=== PATIENT | female | born 1940 | race Caucasian/White ===

== ENCOUNTER → 2016-05-06 | Outpatient (CLI) | payer OTHER ==
[~2016-05-06] VITALS: Ht 170.2 cm; Wt 83.9 kg
[~2016-05-06] MED LIST: ALBUTEROL2.5 MG/0.5 INH; BENICAR20 MG PO; BENTYL 20 MG TA20 M1 PO; CENTRUM SILVER1 EAC4 PO; CITRUCEL479 GM PO; CRESTOR10 MG PO; DICLOFENAC SOD50 M1 PO; FISH OIL + D31 EACH PO; GLUCOSAMINE-CH1 EA33 PO; NEURONTIN 300300 M1 PO; OMEPRAZOLE20 M1 PO; PAROXETINE HCL20 MG PO; ROXICODONE5 MG PO; SPIRIVA INH; STOOL SOFTENER100 MG PO; TRIBENZOR 20-51 EACH PO; TROKENDI XR100 MG PO; VALACYCLOVIR500 MG PO; VITAMIN D1000 UNI1 PO
--- NOTE | ~2016-05-06 | HPC ---
[facility] [address] [place] [address] PAIN MANAGEMENT CONSULTATION Name: WALT CONTRERAS Room #: REG [facility]..#: [id number] Admission: 05/06/16 Attend Phys: Elmer Adams DO Discharge: Date of : 42 Report #: [id number] THIS REPORT FOR: //name// CC: Elmer Adamson DATE OF SERVICE: 05/06/2016 DATE OF SERVICE: 05/06/2016 CHIEF COMPLAINT: Low back pain, bilateral lower extremity pain, left greater than right. HISTORY OF PRESENT ILLNESS: As you know, the patient is a 76-year-old female, who returns today in followup visit requesting to undergo next in the series of epidural injections under fluoroscopic guidance. The patient is placing pain score around 8/10. States pain is mainly in low back, left lower extremity, but periodically in the right. She describes the pain as gradually recurring, sharp in sensation, exacerbated with standing, walking and any type of activity, improves with sitting and lying down as well as epidural injections. Most recent epidural injection provided 65% improvement in overall pain lasting for nearly 3 months. She returns today requesting to undergo the next in the series in hopes of improving pain. ALLERGIES: PENICILLIN, SULFA. CURRENT MEDICATIONS: Olmesartan, topiramate, docusate, cholecalciferol, multivitamin, Citrucel, omeprazole, , Tribenzor, valacyclovir, albuterol, glucosamine chondroitin, omega-3 fish oil, gabapentin, dicyclomine, paroxetine and Spiriva. SOCIAL HISTORY: The patient continues to smoke 1 pack of tobacco per day and has done so for 51 years. Denies IV or illicit drug use. Denies any chronic alcohol use. She is . She is unaccompanied today. PHYSICAL EXAMINATION: VITAL SIGNS: Blood pressure 132/74, pulse 80, respiratory rate 20, unlabored. The patient is 94% on room air. Height 5 feet 7 inches tall, weight 185 pounds, BMI calculated 29. GENERAL: Well developed, well nourished, well hydrated 76-year-old female appearing stated age, pain is rated around 8/10. HEENT: Normocephalic, atraumatic. Pupils equal, round, reactive to light. Extraocular muscles are intact. Sclerae nonicteric, without injection. EXTREMITIES: Show no clubbing, no cyanosis, no edema. MUSCULOSKELETAL: Seated straight leg raising negative. Supine straight leg [address] [address] PAIN MANAGEMENT CONSULTATION Name: WALT CONTRERAS KIMBERLY Room #: REG [facility].#: [id number] Admission: 05/06/16 Attend Phys: Elmer Adams DO Discharge: Date of : 42 Report #: [id number] raising positive on the left. Nestor's test negative. Modified Gaenslen's is positive for axial low back pain. Ankle clonus negative. Babinski is negative. Muscle bulk and tone equal and symmetrical in the lower extremities. ASSESSMENT: 1. Lumbar radiculopathy. 2. Spinal stenosis of the lumbar spine. 3. Displacement of lumbar intervertebral disk with radiculopathy. 4. Lumbosacral spondylosis with radiculopathy. 5. Lumbar degeneration. 6. Chronic intractable pain. PLAN: 1. The patient returns today in followup visit requesting to undergo next in the series of epidural injections under fluoroscopic guidance. The patient does report a 65% improvement in overall pain with the epidural injection provided at our last visit of 12/26/2015. She has had a slow and progressive return of symptoms over the past couple of weeks, now already pain at level of 8/10. She returns today requesting an epidural injection under fluoroscopic guidance. The patient was advised that third democrat payer restrictions require that authorization be obtained before she can undergo the next in a series of epidural injections. This authorization will take somewhere between 4-7 working days. We will begin authorization process immediately. Once we have achieved this authorization, we will contact the patient to have her return to undergo next in the series of epidural injections. 2. Patient and I did discuss the possibility of returning to see Dr. Staley. She may due to go at any time if she wishes to consider surgical options. Otherwise, we will continue management with epidural injections as they have been effective. 3. No medication changes were made at today's visit. The patient continue current medical therapy as previously prescribed. 4. The patient will return to our clinic once we have achieved precertification for an epidural injection. <ELECTRONICALLY SIGNED> By: Elmer Adams DO 05/06/16 1316 1152 1219 Elmer Adams DO /nt
[2016-05-06 10:24] VITALS: BP 132/74
== END | disposition home or self-care (01) ==
LOC: PAIN 05:46
DX: M51.16 Intervertebral disc disorders with radiculopathy, lumbar region (principal); M48.06 Spinal stenosis, lumbar region; M47.27 Other spondylosis with radiculopathy, lumbosacral region; G89.29 Other chronic pain; F17.210 Nicotine dependence, cigarettes, uncomplicated

== ENCOUNTER → 2016-05-14 | Outpatient (CLI) | payer OTHER ==
[~2016-05-14] VITALS: Ht 170.2 cm; Wt 83.5 kg
--- NOTE | ~2016-05-14 | HPC ---
[facility] [address] [place] [address] PAIN MANAGEMENT CONSULTATION Name: WALT CONTRERAS Room #: REG [facility].#: [id number] Admission: 05/14/16 Attend Phys: Elmer Adams DO Discharge: Date of : 42 Report #: [id number] THIS REPORT FOR: //name// CC: Elmer Adamson DATE OF SERVICE: 05/14/2016 CHIEF COMPLAINT: Low back pain, lower extremity pain with paresthesias, left greater than right. HISTORY OF PRESENT ILLNESS: As you know, the patient is a 76-year-old female who returns today in followup visit with preauthorization to undergo the next in a series of epidural injections under fluoroscopic guidance. The patient has done very well with previous epidural injections, returning today in followup visit in hopes of improving pain further. She does have surgical options available, but does not wish to undergo surgery if she can avoid. She wishes to undergo the epidural injection requested today in hopes of improving pain. She is placing pain score at 8/10; exacerbated with standing, walking, any activity; improves with sitting, lying down. ALLERGIES: PENICILLIN, SULFA. CURRENT MEDICATIONS: Olmesartan, topiramate, docusate sodium, cholecalciferol, multivitamin, Citrucel, omeprazole, lovastatin, Tribenzor, valacyclovir, albuterol, glucosamine chondroitin, gabapentin, dicyclomine, paroxetine, Spiriva. SOCIAL HISTORY: The patient continues to smoke 1 pack of tobacco per day, has done so for 50+ years. Denies IV or illicit drug use. Unaccompanied today. PHYSICAL EXAMINATION: VITAL SIGNS: Blood pressure 141/80, pulse 81, respiratory rate 16, unlabored. The patient is 90% on room air. Height 5 feet 7 inches tall, weight 184 pounds, BMI calculated 28.8. GENERAL: Well developed, well nourished, well hydrated, 76-year-old female appearing stated age. She is placing current pain score 8/10. HEENT: Normocephalic, atraumatic. Pupils equal, round, reactive to light. Extraocular muscles are intact. EXTREMITIES: Show no clubbing, no cyanosis, no edema. MUSCULOSKELETAL: Seated straight leg raising negative. Supine straight leg raising positive on the left. Nestor's test negative. Modified Gaenslen's is positive for axial low back pain. Gait slightly antalgic favoring left lower extremity over right. [address] [address] PAIN MANAGEMENT CONSULTATION Name: WALT CONTRERAS Room #: REG [facility]#: [id number] Admission: 05/14/16 Attend Phys: Elmer Adams DO Discharge: Date of : 42 Report #: [id number] ASSESSMENT: 1. Symptomatic lumbar radiculopathy. 2. 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 3. Lumbosacral spondylosis with radiculopathy. 4. Displacement of lumbar intervertebral disk with radiculopathy. 5. Lumbar degeneration. 6. Chronic intractable pain. PLAN: 1. The patient has returned today in followup visit to undergo epidural injection under fluoroscopic guidance. She has received precertification to undergo the procedure and has noted good efficacy with previous injections. She returns requesting this epidural injection today. She was advised risks and benefits of procedure, states she understood and wished to proceed. 2. The patient will return to our clinic in approximately 45 days. At that time, review the efficacy of today's epidural injection, determine if the next in a series of epidural injections would be necessary. <ELECTRONICALLY SIGNED> By: Elmer Adams DO 05/20/16 0737 0940 1044 Elmer Adams DO /nt
--- NOTE | ~2016-05-14 | P ---
[facility] [place] [address] [place] [address] PROCEDURE REPORT Name: WALT CONTRERAS [facility] [id number] Admission: 05/14/16 Attend Phys: Elmer Adams DO Discharge: Date of : 42 Report #: [id number] THIS REPORT FOR: //name// CC: Elmer Adamson DATE OF SERVICE: 05/14/2016 DESCRIPTION OF PROCEDURE: L5-S1 interlaminar epidural steroid injection under fluoroscopic guidance. This is the 2 procedure of the 3 series that the patient is undergoing. After obtaining written consent, the patient was taken back to the fluoroscopy suite, placed in a prone position with pillow under the abdomen to decrease lumbar lordosis. The skin overlying the lumbosacral area was then prepped and draped in aseptic fashion. The L5-S1 vertebral interspace was then identified by AP fluoroscopy. The skin and subcutaneous tissue overlying the target site of injection was anesthetized with 3 mL 1% lidocaine. A 20-gauge 3-1/2-inch Tuohy needle was then advanced under fluoroscopic guidance towards the epidural space using a paramedian approach. The epidural space was identified using loss of resistance to air technique. After negative aspiration for heme or cerebrospinal fluid, a total of 1 mL of Omnipaque was injected. A lumbar epidurogram was confirmed using both AP and lateral fluoroscopy. After negative aspiration for heme or cerebrospinal fluid, 5 mL of a solution containing 2 mL 40 mg per mL, 80 mg total triamcinolone, 3 mL of lidocaine 1% was injected in increments. Contrast spread was noted posterior epidural space. The needle was then retracted approximately half way and needle tract flushed with 1 mL of 1% lidocaine. Needle was then removed. There were no apparent sensory or motor deficits in the lower extremity following the procedure. A sterile bandage was placed over the injection site. The heart rate, pulse, oximetry and blood pressure were continuously monitored after the procedure. There were no apparent complications. The patient tolerated the procedure well and was carefully escorted to the recovery room in stable condition. There were no apparent complications. After meeting discharge criteria, the patient was then discharged home. <ELECTRONICALLY SIGNED> By: Elmer Adams DO 05/20/16 0737 0940 1047 Elmer Adams DO /nt
[2016-05-14 08:57] VITALS: BP 141/80
== END | disposition home or self-care (01) ==
LOC: PAIN 06:58
DX: M51.16 Intervertebral disc disorders with radiculopathy, lumbar region (principal); M48.06 Spinal stenosis, lumbar region; M47.27 Other spondylosis with radiculopathy, lumbosacral region; G89.29 Other chronic pain; F17.210 Nicotine dependence, cigarettes, uncomplicated

== ENCOUNTER → 2016-10-01 | Outpatient (CLI) | payer OTHER ==
[~2016-10-01] VITALS: Ht 170.2 cm; Wt 81.1 kg
[~2016-10-01] MED LIST changes: +DICLOFENAC SODI25 MG PO; +KEFLEX500 M1 PO; +NORVASC5 MG PO; +QUDEXY XR150 MG PO
--- NOTE | ~2016-10-01 | HPC ---
[facility] [address] [place] [address] PAIN MANAGEMENT CONSULTATION Name: WALT CONTRERAS Room #: REG [facility] M..#: [id number] Admission: 10/01/16 Attend Phys: Elmer Adams DO Discharge: Date of : 42 Report #: [id number] THIS REPORT FOR: //name// CC: Elmer Adamson DATE OF SERVICE: 10/01/2016 CHIEF COMPLAINT: Low back pain, bilateral lower extremity pain with paresthesias, left greater than right. HISTORY OF PRESENT ILLNESS: As you know, the patient is a 76-year-old female who has returned today in followup visit for spinal cord stimulator trial implantation. She has successfully completed all evaluations and has received precertification for her to undergo the procedure today. The patient today is placing pain score at around 4-5/10, states the pain is sharp, constant aching in sensation, exacerbated with standing, walking, any activity, improves with sitting and lying down. She has received precertification to undergo the procedure today, returning in followup visit to undergo the trial implantation for the next week. ALLERGIES: PENICILLIN, SULFA. CURRENT MEDICATIONS: Olmesartan, topiramate, diclofenac, amlodipine, docusate sodium, cholecalciferol, multivitamin, Citrucel, omeprazole, rosuvastatin, Tribenzor, valacyclovir, albuterol, glucosamine chondroitin, omega 3 fish oil, gabapentin, dicyclomine, paroxetine and tiotropium bromide, oxycodone. SOCIAL HISTORY: The patient continues to smoke 1 pack tobacco per day, has done so for 51 years plus. Denies IV or illicit drug use. Denies any chronic alcohol use. Accompanied by her daughter who is present in room today. IMAGING: No new imaging available. PHYSICAL EXAMINATION: VITAL SIGNS: Blood pressure 145/78, pulse 96, respiratory rate 16, unlabored, the patient is 91% on room air, height 5 feet 7 inches tall, weight 178 pounds, BMI calculated at 28.0. GENERAL: Well-developed, well-nourished, well-hydrated 76-year-old female appearing her stated age, placing current pain score at 4-5/10. HEENT: Normocephalic, atraumatic. Pupils equal, round, reactive to light. EXTREMITIES: Show no clubbing, no cyanosis, no edema. MUSCULOSKELETAL: Seated straight leg raising negative. Supine straight leg raising positive. Fabere's test negative. Modified Gaenslen's positive for axial low back pain. Ankle clonus negative. Babinski is negative. [address] [address] PAIN MANAGEMENT CONSULTATION Name: WALT CONTRERAS Room #: REG [facility].#: [id number] Admission: 10/01/16 Attend Phys: Elmer Adams DO Discharge: Date of : 42 Report #: [id number] ASSESSMENT: 1. Symptomatic lumbar radiculopathy. 2. 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 3. Displacement of lumbar intervertebral disk with radiculopathy. 4. Lumbosacral spondylosis with radiculopathy. 5. Lumbar degeneration. 6. Chronic intractable pain. PLAN: 1. The patient returns today in followup visit having received precertification to undergo spinal cord stimulator trial implantation. The patient and I have discussed at length today the risks and the benefits of this trial implantation. These risks include but are not necessarily limited to bleeding, bruising, infection, worsening pain, no relief of pain, also risk of temporary or permanent muscle weakness, temporary or permanent nerve damage, possible paralysis and . The patient states understood and wished to proceed. 2. The patient was provided a prescription of Keflex 500 mg dose 1 tab p.o. b.i.d., I have given the patient #14 tablets to take during the trial implantation. 3. The patient was provided prescription of oxycodone 5 mg dose 1 tab p.o. q. 8 hours p.r.n. for pain, I have given the patient #90 tablets, no refills. The patient was advised to take this medication only when pain is intolerable, not to rely on this medication prophylactically. 4. We will see the patient back in followup visit 1 week for explantation of device and discuss efficacy of the therapy PROCEDURE NOTE: DESCRIPTION OF PROCEDURE: Spinal cord stimulator trial implantation. After obtaining written consent, the patient was taken to the fluoroscopy suite, placed in prone position with 2 pillows under the abdomen to decrease lumbar lordosis. Cardiopulmonary monitoring was established and the patient's vital signs were monitored throughout the procedure. The patient's thoracolumbar spine was prepped and draped with chlorhexidine times 2 and draped in usual sterile fashion. The patient was not given IV sedation prior to the procedure. AP fluoroscopic view was obtained to identify and mallory the midline positions of the T10 through L2 spinous processes. The skin was anesthetized with 1% lidocaine on each side, total of 10 mL on the right, 10 mL on the left. This was done prior to the introduction of the 14 gauge 4 inch Tuohy needles. Skin entry site was approximately at the level of the L1 vertebral body. Needle was advanced using a paramedian approach to the right of midline at approximately 45 degree angle. Loss of resistance to air was utilized to verify placement within the epidural space. The epidural space entered at the T12-L1 interspace. Lateral fluoroscopic view was obtained to confirm the position of the tip of the [facility] [address] [place] [address] PAIN MANAGEMENT CONSULTATION Name: WALT CONTRERAS Room #: REG [facility].#: [id number] Admission: 10/01/16 Attend Phys: Elmer Adams DO Discharge: Date of : 42 Report #: [id number] Tuohy needle within the epidural space. Aspiration was noted to be negative for heme or cerebrospinal fluid. The patient did not complain of pain or paresthesias during the needle placement. The spinal cord stimulating lead was then advanced through the Tuohy needle under direct visualization to the midline at the thoracic T7 level. The tip of the stimulating needle was aligned with the inferior endplate of T7 vertebral body located within the midline. A second lead was placed in the epidural space. This was done on the left side following similar technique as above. The lead was advanced to the superior endplate of T8 placed at the midline. At this point, temporary extensions were then placed on to the spinal cord stimulating lead. The stylet was then removed from the lead followed by the Tuohy needle. Both leads were checked and rechecked in position during the anchoring of the leads to the skin, we used Steri-Strips and OpSite bandaging. The patient was then placed in the seated position. We had her to do 6 different maneuvers to determine movement of the lead, she was then placed back into a prone position and imaging was taken to confirm position of the leads. Tape was readjusted. Over half hour of time was spent programming the spinal cord stimulating leads to obtain optimal coverage of the patient's pain distribution. The device patient account representative instructed the patient the use of the stimulator during the trial process. We did reiterate the precautions of about getting the area wet. We did provide the patient with information both in verbal and written form to watch for any side effects that may occur specifically infection, risks such as increasing temperature, fever, night sweats, nausea, increasing back pain, increasing headache symptoms, drainage from the site, if she notes any of these potential side effects concerning of infection, she is to contact the on-call pain physician. If she is having difficulty with capture of her pain and coverage of her pain, she is to contact the [facility] device patient account representative. The patient will return in 1 week for explantation of device and we will discuss efficacy at that visit. <ELECTRONICALLY SIGNED> By: Elmer Adams DO 10/02/16 0753 0849 1255 Elmer Adams DO /nt
[2016-10-01 07:24] VITALS: BP 145/78
== END ==
LOC: PAIN 06:06
DX: M47.27 Other spondylosis with radiculopathy, lumbosacral region (principal); M48.06 Spinal stenosis, lumbar region; M51.16 Intervertebral disc disorders with radiculopathy, lumbar region; G89.29 Other chronic pain; F17.210 Nicotine dependence, cigarettes, uncomplicated; F32.9 Major depressive disorder, single episode, unspecified

== ENCOUNTER → 2016-10-07 | Outpatient (CLI) | payer OTHER ==
[~2016-10-07] VITALS: Ht 170.2 cm; Wt 81.7 kg
--- NOTE | ~2016-10-07 | HPC ---
[facility] [address] [place] [address] PAIN MANAGEMENT CONSULTATION Name: WALT CONTRERAS Room #: REG [facility] M..#: [id number] Admission: 10/07/16 Attend Phys: Elmer Adams DO Discharge: Date of : 42 Report #: [id number] THIS REPORT FOR: //name// CC: Elmer Adamson MD DATE OF SERVICE: 10/07/2016 CHIEF COMPLAINT: Low back pain, bilateral lower extremity pain, left greater than right. HISTORY OF PRESENT ILLNESS: As you know, the patient is a 76-year-old female who returns today in followup visit with 90% improvement in overall pain with spinal cord stimulator trial. The patient is extremely pleased with the response to the device itself and is hopeful that we will still begin moving forward with permanent implant. She returns today for explantation of device and discussed the efficacy of the trial. She is placing pain score no greater than 2/10; states pain is exacerbated with standing, walking activities and improves with sitting, lying down, medications and the spinal cord stimulator trial. She returns for explantation of the spinal cord stimulator and to begin the process of scheduling permanent implant. ALLERGIES: PENICILLIN, SULFA. CURRENT MEDICATIONS: Olmesartan, topiramate, diclofenac, amlodipine, docusate sodium, cholecalciferol, multivitamin, Citrucel, omeprazole, , Tribenzor, valacyclovir, albuterol, glucosamine chondroitin, omega 3 fish oil, gabapentin, dicyclomine, paroxetine, tiotropium bromide, oxycodone. SOCIAL HISTORY: The patient continues to smoke 1 pack tobacco per day, has done so for 51 years. Denies IV or illicit drug use. Denies any chronic alcohol use. She is accompanied by her daughter who was present in room today. IMAGING: No new imaging available. PHYSICAL EXAMINATION: VITAL SIGNS: Blood pressure 129/76, pulse 95, respiratory rate 20, unlabored. The patient is 94% on room air. Height 5 feet 7 inches tall, weight 180.2 pounds, BMI calculated 28.2. GENERAL: Well developed, well nourished, well hydrated 76-year-old female appearing stated age, placing current pain score 2/10. HEENT: Normocephalic, atraumatic. Pupils equal, round, reactive to light. EXTREMITIES: Show no clubbing, no cyanosis, no edema. MUSCULOSKELETAL: Seated straight leg raising negative. Supine straight leg [address] [address] PAIN MANAGEMENT CONSULTATION Name: WALT CONTRERAS Room #: REG [facility]#: [id number] Admission: 10/07/16 Attend Phys: Elmer Adams DO Discharge: Date of : 42 Report #: [id number] raising positive. Nestor test negative. ASSESSMENT: 1. Symptomatic lumbar radiculopathy. 2. Spinal stenosis of lumbar spine. 3. Displacement of lumbar intervertebral disk with radiculopathy. 4. Lumbosacral spondylosis with radiculopathy. 5. Lumbar degeneration. 6. Chronic intractable pain. PLAN: 1. The patient returns today in followup visit indicating 90% improvement in overall pain with the spinal cord stimulator trial implantation. She is extremely pleased with response to this trial implantation and wishes to move forward with permanent option. The patient and I did discuss that third republican payer restrictions require that authorization be obtained before we can move forward with this procedure. We will begin the authorization process immediately and contact the patient for scheduling of the device implant. 2. We will be referring the patient to see Dr. Humberto Baxter at [facility] for implantation of the device. The referral will be placed today. The patient will follow up with Dr. Baxter for implantation of the device. Once the device is implanted, she will be then returning to our clinic for wound checks post-procedurally the first week and second week after permanent implant. 3. No medication changes were made at today's visit. The patient does continue current medical therapy as previously prescribed. 4. We will see the patient back in followup visit on an as needed basis. At her next visit, we should be evaluating the patient's incisions as she will be 1 week post permanent implant. We are pleased to see she has done well. We are hopeful we can get this permanent implant scheduled quickly. By: 1147 1447 Elmer Adams DO /nt
[2016-10-07 10:42] VITALS: BP 129/76
== END ==
LOC: PAIN 06:33
DX: M54.5 Low back pain (principal); M79.662 Pain in left lower leg; M79.661 Pain in right lower leg; F17.210 Nicotine dependence, cigarettes, uncomplicated; M47.27 Other spondylosis with radiculopathy, lumbosacral region; M48.06 Spinal stenosis, lumbar region; M51.16 Intervertebral disc disorders with radiculopathy, lumbar region; G89.29 Other chronic pain; I10 Essential (primary) hypertension; F32.9 Major depressive disorder, single episode, unspecified

== ENCOUNTER → 2017-02-04 | Outpatient (CLI) | payer OTHER ==
[~2017-02-04] VITALS: Ht 167.6 cm; Wt 78.0 kg
--- NOTE | ~2017-02-04 | HPC ---
[facility] [place] [address] PAIN MANAGEMENT CONSULTATION Name: WALT CONTRERAS Room #: REG [facility] M.R.#: [id number] Admission: 02/04/17 Attend Phys: Elmer Adams DO Discharge: Date of : 42 Report #: [id number] THIS REPORT FOR: //name// CC: Elmer Adamson DATE OF SERVICE: 02/04/2017 DATE OF SERVICE: 02/04/2017 CHIEF COMPLAINT: Low back pain, bilateral lower extremity pain, left greater than right. HISTORY OF PRESENT ILLNESS: As you know, the patient is a 76-year-old female who returns today in followup visit stating that the spinal cord stimulator is no longer providing any improvement in symptoms. She states she received about a week to 2 weeks' worth of improvement in symptoms with the cord stimulator and this has subsequently discontinued. She returns today in followup visit for evaluation for increasing pain issues not resolved by the spinal cord stimulator. She is also requesting assistance for pain medications as we continue the workup for the lack of improvement with the spinal cord stimulator. The patient reported 95% improvement in overall pain with the initial cord stimulator implant for trial and 95% improvement postprocedurally for the spinal cord stimulator permanent implant, but this has subsequently reduced to 0% improvement. She denies injury or trauma that may have led to increasing pain. She has had no change in medical history since our last visit. ALLERGIES: PENICILLIN, SULFA. CURRENT MEDICATIONS: Olmesartan, topiramate, diclofenac, amlodipine, docusate sodium, cholecalciferol, multivitamin, Citrucel, omeprazole, Tribenzor, valacyclovir, albuterol, glucosamine chondroitin, omega 3 fish oil, gabapentin, dicyclomine, paroxetine, tiotropium bromide, oxycodone. SOCIAL HISTORY: The patient smokes 1 pack tobacco per day, has done so for 52 years. Denies IV or illicit drug use. Denies any chronic alcohol use. She is unaccompanied today. IMAGING: No new imaging available. PHYSICAL EXAMINATION: VITAL SIGNS: Blood pressure 135/72, pulse 87, respiratory rate 16, unlabored. The patient is 94% on room air. Height 5 feet 6 inches tall, weight 172 pounds, BMI calculated 27.8. GENERAL: Well-developed, well-nourished, well-hydrated, 76-year-old female [address] [address] PAIN MANAGEMENT CONSULTATION Name: WALT CONTRERAS Room #: REG CLI [facility]#: [id number] Admission: 02/04/17 Attend Phys: Elmer Adams DO Discharge: Date of : 42 Report #: [id number] appearing older than stated age, placing current pain score at 8/10. HEENT: Normocephalic, atraumatic. Pupils equal, round, reactive to light. EXTREMITIES: Show no clubbing, no cyanosis, no edema. MUSCULOSKELETAL: The patient has negative seated straight leg raising, positive supine straight leg raising. MARIA GUADALUPE test negative. Modified Gaenslen's positive for axial low back pain. Ankle clonus negative. Babinski is negative. Well healed surgical scars from the spinal cord stimulator. ASSESSMENT: 1. Symptomatic lumbar radiculopathy. 2. 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 3. Displacement of lumbar intervertebral disk with radiculopathy. 4. Lumbosacral spondylosis with radiculopathy. 5. Lumbar degeneration. 6. Chronic intractable pain. PLAN: 1. The patient returns today in followup visit indicating no improvement in symptoms with spinal cord stimulator. She states she received excellent improvement lasting for a week to two weeks with the spinal cord stimulator after permanent implant, but subsequently lost effect. There is some concern that the leads themselves may have moved during scarring and healing. She returns today and we have agreed to have her undergo fluoroscopic imaging to determine if the leads had displaced and thus we can provide this information to the [employer] device customer relations representative and they can adjust the programming appropriately. The patient has agreed to undergo the fluoroscopic imaging today. We performed this today while the patient was here. The imaging was then sent the [facility]ro device customer relations representative who is adjusting the programming hopefully to improve overall pain. The patient will continue to contact the [facility]ro device representatives to get adjustments made to the cord stimulator as we did see excellent benefit both in the trial and in the permanent implant initially. 2. I have provided the patient with a prescription of oxycodone. This will be a short dosing of medication to provide pain relief as we continue the adjustments of the spinal cord stimulator. We have given her 1 tab every 8 hours p.r.n. for pain. I have given her #90 tablets and advised the patient not to take these consistently. She is to take the medication only when pain is intolerable, not to rely on the medication prophylactically. This should last a period of time longer than one month. 3. We will see the patient back in followup visit on an as needed basis for possible adjustments in her spinal cord stimulator. By: 0826 [id number] Elmer Adams DO /nt
[2017-02-04 09:35] VITALS: BP 135/72
== END | disposition home or self-care (01) ==
LOC: PAIN 07:18
DX: M51.16 Intervertebral disc disorders with radiculopathy, lumbar region (principal); M47.27 Other spondylosis with radiculopathy, lumbosacral region; G89.29 Other chronic pain; F17.200 Nicotine dependence, unspecified, uncomplicated; Z79.899 Other long term (current) drug therapy; Z88.8 Allergy status to other drugs, medicaments and biological substances; Z88.0 Allergy status to penicillin

== ENCOUNTER → 2017-04-21 | Outpatient (CLI) | payer OTHER ==
[~2017-04-21] VITALS: Ht 170.2 cm; Wt 78.5 kg
--- NOTE | ~2017-04-21 | HPC ---
[facility] Joshua Quiroz [employer] [address] PAIN MANAGEMENT CONSULTATION Name: WALT CONTRERAS Room #: REG [facility] M..#: [id number] Admission: 04/21/17 Attend Phys: Elmer Adams DO Discharge: Date of : 42 Report #: [id number] THIS REPORT FOR: //name// CC: Elmer Adamson DATE OF SERVICE: 04/21/2017 CHIEF COMPLAINT: Low back pain, bilateral lower extremity pain, left greater than right. HISTORY OF PRESENT ILLNESS: As you know, the patient is a 77-year-old female who returns today in followup visit for adjustments in her spinal cord stimulator. She has had permanent implant of this device for some time, but is having trouble gaining analgesic benefit. She is placing pain score at 8/10. There have been multiple adjustments to the spinal cord stimulator. Despite these multiple adjustments, she continues to experience pain of intense levels. She states that standing, walking, activities exacerbate symptoms. Sitting, lying down and medications appear to improve pain. She is placing pain score at 8/10 today. She returns for adjustments in the spinal cord stimulator. ALLERGIES: PENICILLIN, SULFA. CURRENT MEDICATIONS: Oxycodone, diclofenac, topiramate, amlodipine, olmesartan, docusate sodium, multivitamin, Citrucel, omeprazole, rosuvastatin, Tribenzor, valacyclovir, albuterol, glucosamine chondroitin, omega 3 fish oil, gabapentin, dicyclomine, paroxetine, tiotropium bromide. SOCIAL HISTORY: The patient continues to smoke 1 pack tobacco per day, has done so for 53 years. Denies IV or illicit drug use. Denies any chronic alcohol use. She is unaccompanied today. IMAGING: No new imaging available. PHYSICAL EXAMINATION: VITAL SIGNS: Blood pressure 139/65, pulse 90, respiratory rate 14, unlabored. The patient is 90% on room air. Height 5 feet 7 inches tall, weight 173 pounds, BMI calculated 27.1. GENERAL: Well-developed, well-nourished, well-hydrated 77-year-old female, placing current pain score 8/10. HEENT: Normocephalic, atraumatic. Pupils are equal, round, reactive to light. Extraocular muscles are intact. Affect flat. EXTREMITIES: Show no clubbing, no cyanosis, no edema. MUSCULOSKELETAL: The patient has a positive seated straight leg raising, positive supine straight leg raising and MARIA GUADALUPE test negative. [facility] [address] [place] [address] PAIN MANAGEMENT CONSULTATION Name: WALT CONTRERAS Room #: REG [facility]#: [id number] Admission: 04/21/17 Attend Phys: Elmer Adams DO Discharge: Date of : 42 Report #: [id number] Galen's positive for axial low back pain. Well-healed surgical scars in the lower lumbar spine. ASSESSMENT: 1. Symptomatic lumbar radiculopathy. 2. Spinal stenosis of lumbar spine, progressively worsening. 3. Displacement of lumbar intervertebral disk with radiculopathy. 4. Lumbosacral spondylosis with radiculopathy. 5. Lumbar degeneration. 6. Chronic intractable pain. PLAN: 1. The patient has returned today in followup visit indicating no improvement in symptoms with the permanent spinal cord stimulator. The patient reported upwards of 70-80% improvement in overall pain with the temporary implant, but is having difficulty obtaining any efficacy with the permanent implant. She returns today in followup visit for adjustments in the device itself. We have imaged the leads and they appear to be unchanged from previous evaluation. They are in "the sweet spot." We will make adjustments in the programming today in hopes of improving the pain further. These adjustments took nearly 30 minutes of time today. 2. No medication changes were made at today's visit. The patient to continue current medical therapy as previously prescribed. 3. We will see the patient back in followup visit on an as needed basis for further adjustments in the spinal cord stimulator. If we are unable to obtain any improvement in symptoms and pain with the device itself, I have recommended the patient return to see her neurosurgeon for surgical options. <ELECTRONICALLY SIGNED> By: Elmer dAams DO 04/22/17 1219 [id number] Elmer Adams DO /nt
[2017-04-21 08:25] VITALS: BP 139/65
== END ==
LOC: PAIN 06:43
DX: M48.061 Spinal stenosis, lumbar region without neurogenic claudication (principal); M51.16 Intervertebral disc disorders with radiculopathy, lumbar region; M47.27 Other spondylosis with radiculopathy, lumbosacral region; M47.896 Other spondylosis, lumbar region; F17.200 Nicotine dependence, unspecified, uncomplicated; G89.29 Other chronic pain

== ENCOUNTER → 2018-03-04 | Outpatient (CLI) | payer OTHER ==
[~2018-03-04] VITALS: Ht 167.6 cm; Wt 75.8 kg
== END | disposition home or self-care (01) ==
LOC: GI 08:42 → EDSTATUS 09:52 → GI 15:41
DX: Z12.11 Encounter for screening for malignant neoplasm of colon (principal); Z53.8 Procedure and treatment not carried out for other reasons; I10 Essential (primary) hypertension; J43.9 Emphysema, unspecified; K21.9 Gastro-esophageal reflux disease without esophagitis; G43.909 Migraine, unspecified, not intractable, without status migrainosus; F41.9 Anxiety disorder, unspecified; F32.9 Major depressive disorder, single episode, unspecified; F17.210 Nicotine dependence, cigarettes, uncomplicated; Z96.653 Presence of artificial knee joint, bilateral; Z85.3 Personal history of malignant neoplasm of breast; Z90.710 Acquired absence of both cervix and uterus; Z90.49 Acquired absence of other specified parts of digestive tract; Z98.51 Tubal ligation status; Z98.890 Other specified postprocedural states; Z79.899 Other long term (current) drug therapy; Z88.0 Allergy status to penicillin; Z88.2 Allergy status to sulfonamides

== ENCOUNTER → 2019-09-06 | Outpatient (CLI) | payer OTHER | LOC: ULTRA 10:23 | DX: N63.24 Unspecified lump in the left breast, lower inner quadrant (principal) ==

== ENCOUNTER 2019-10-20 14:47 | Emergency (ER) | payer OTHER ==
[~2019-10-20] VITALS: Ht 172.7 cm; Wt 75.0 kg
--- NOTE | ~2019-10-20 | EMS ---
[facility] [address] [place] [id number] EMS Patient Care Report Name: WALT CONTRERAS Room #: PRE M.R.#: [id number] Admission: Attend Phys: Discharge: Date of : 42 Report #: [id number] THIS REPORT FOR: //name// Report Transmitted: 10/20/2019 14:28 EMS Care Summary [place], [place]/[facility] Incident [id number] @ 10/20/2019 14:10 Incident Location [address] [place] [address] Patient WALT CHAVEZ Female, 79 Years 1940 Patient Address [address] [place] [address] Patient History Chronic Obstructive Pulmonary Disease (COPD),Hypertension (HTN), Patient Allergies No known allergies, Patient Medications Other, Amlodipine, Gabapentin, Topiramate, Oxycodone, Ranitidine, Rosuvastatin, Disposition Transported No Lights/[place] Dispatch Reason Breathing Problem Transported To [facility] Narrative THE PATIENT WAS FOUND SITTING IN A CHAIR IN THE LIVING ROOM AT HOME WITH A FAMILY MEMBER AND NEIGHBOR ON SCENE. THE FAMILY MEMBER STATES SHE FOUND TO PATIENT IN HER CURRENT POSITION WITH ALTERED MENTAL STATUS ABOUT AN HOUR AGO. THE FAMILY MEMBER STATES THE PATIENT IS NORMALLY ALERT AND ORIENTED x4. THE PATIENT IS ALERT TO HERSELF AND IS ABLE TO SAY IT IS OCTOBER ONLY SCORING A GCS OF 14. THE PATIENT COMPLAINS OF BACK PAIN SINCE YESTERDAY. THE PATIENT WAS FOUND TO HAVE A ROOM AIR OXYGEN SATURATION OF 88%-90% WHICH IMPROVED TO 92%-94% WITH [facility] [address] [place] [address] EMS Patient Care Report Name: WALT CONTRERAS Room #: PRE ER M.R.#: [id number] Admission: Attend Phys: Discharge: Date of : 44 Report #: [id number] OXYGEN BY CANNULA. IV ACCESS WAS ESTABLISHED. THE MONITOR WAS APPLIED SHOWING NSR. A BLOOD GLUCOSE OF 109 WAS OBTAINED. NO CHANGES IN THE PATIENT'S CONDITION DURING TRANSPORT. THE PATIENT WAS MOVED TO BED 4 AT THE PSYCHIATRIC ER AND LEFT WITH THE SIDE RAILS UP AND LOCKED. CARE WAS TRANSFERRED TO THE ER NURSING STAFF. Initial Vitals @14:31P: 93,R: 13,BP: 164/98,GCS: 14,SpO2: 89,Revised Trauma: 12, @14:39P: 94,R: 20,BP: 170/99,GCS: 14,Revised Trauma: 12, @14:17P: 97,R: 18,BP: 149/90,GCS: 14,Glucose: 109,CO: 2,SpO2: 89,Revised Trauma: 12, Assessments @14:15MENTAL:Confused,Person Oriented,Time Oriented,SKIN:No Abnormalities,HEENT:Head/Face: No Abnormalities,Eyes: No Abnormalities,Neck/Airway: No Abnormalities,LUNG SOUNDS:General: No Abnormalities,Left Upper: No Abnormalities,Right Upper: No Abnormalities,Left Lower: No Abnormalities,Right Lower: No Abnormalities,ABDOMEN:General: No Abnormalities,Left Upper: No Abnormalities,Right Upper: No Abnormalities,Left Lower: No Abnormalities,Right Lower: No Abnormalities,PELVIS//GI:No Abnormalities,EXTREMITIES:Left Arm: No Abnormalities,Right Arm: No Abnormalities,Left Leg: No Abnormalities,Right Leg: No Abnormalities,PULSE:Radial: 2+ Normal,NEURO:No Abnormalities, Impression Altered Mental Status Procedures @14:15ALS AssessmentResponse: Unchanged@14:19Oxygen FlowRate: 3 Device: Nasal Cannula (NC) Response: Improved@14:25Saline Lock 10cc (20 ga) Site: Hand-LeftResponse: UnchangedSucceeded@14:273-Lead ECGResponse: Unchanged Timeline 14:09,Call Received 14:09,Dispatch Notified 14:10,Dispatched 14:11,En Route 14:14,On Scene 14:15,At Patient 14:15,ALS Assessment,Response: Unchanged 14:17,BP: 149/90 M,PULSE: 97,RR: 18 R,SPO2: 89 Ox,ETCO2: ,B,PAIN: ,GCS: 14, 14:19,Oxygen FlowRate: 3 Device: Nasal Cannula (NC) Response: Improved 14:25,Saline Lock 10cc 20 ga Site: Hand-Left,Response: UnchangedSucceeded, 14:27,3-Lead ECG,Response: Unchanged 14:31,BP: 164/98 M,PULSE: 93,RR: 13 R,SPO2: 89 Ox,ETCO2: ,BG: ,PAIN: ,GCS: 14, [facility] [address] [place] [address] EMS Patient Care Report Name: WALT CONTRERAS Room #: PRE M.R.#: [id number] Admission: Attend Phys: Discharge: Date of : 44 Report #: [id number] 14:34,Depart Scene 14:39,BP: 170/99 M,PULSE: 94,RR: 20 R,SPO2: Ox,ETCO2: ,BG: ,PAIN: ,GCS: 14, 14:42,At Destination 15:14,Call Closed Disclaimer v1.1 Copyright 2020 [employer] This EMS Care Summary contains data elements from the applicable legal record (which may be displayed differently). It is designed to provide pertinent information for the following purposes: continuity of care, clinical quality, and state data reporting. The complete legal record is available to ED staff and administrators of the receiving hospital in [facility]'s Patient Tracker. All data is provided "as is."
[2019-10-20 15:04] LABS: ABSOLUTE NEUTROPHILS 5.9 thou/uL (1.4-8.2); BASOPHILS 0.3 % (0.0-2.0); HEMATOCRIT 49.9 % (37.0-47.0); HEMOGLOBIN 16.7 gm/dL (12.0-15.0); MCH 32.4 pg (26.0-34.0); MCHC 33.5 g/dL (28.0-37.0); MCV 96.8 fL (80.0-100.0); PLATELET COUNT 172 thou/uL (150-400); POLYS 79.7 % (36.0-66.0); RBC 5.16 mil/uL (4.20-5.00); RDW 13.9 % (10.5-14.5); WBC 7.4 thou/uL (4.0-11.0)
[2019-10-20 15:10] LABS: ANION GAP 9 mmol/L (7-16); BUN 14 mg/dL (7-18); CALCIUM 9.2 mg/dL (8.5-10.1); CHLORIDE 100 mmol/L (98-107); CO2 26 mmol/L (21-32); CREATININE 0.6 mg/dL (0.6-1.0); GLUCOSE 137 mg/dL (74-106); POTASSIUM 3.5 mmol/L (3.5-5.1); SODIUM 135 mmol/L (136-145)
[2019-10-20 15:20] LABS: MAGNESIUM 1.7 mg/dL (1.8-2.4); TROPONIN-I <0.06 ng/mL (<0.06)
[2019-10-20 15:22] LABS: URINE BILIRUBIN NEGATIVE (Negative); URINE BLOOD 1+ (Negative); URINE CLARITY CLEAR; URINE COLOR YELLOW; URINE GLUCOSE-RANDOM* NEGATIVE (Negative); URINE KETONES 1+ (Negative); URINE LEUKOCYTES-REFLEX NEGATIVE (Negative); URINE NITRITE-REFLEX NEGATIVE (Negative); URINE PROTEIN (DIPSTICK) 3+ (Negative); URINE SPECIFIC GRAVITY 1.025 (1.005-1.035); URINE UROBILINOGEN 0.2 E.U./dl (0.2-1.0)
[2019-10-20 15:28] LABS: AMP/METHAMP Negative (Negative); BARBITURATES Negative (Negative); BENZODIAZEPINES Negative (Negative); COCAINE Negative (Negative); METHADONE Negative (Negative); OPIATES Negative (Negative); PCP Negative (Negative)
[2019-10-20 15:33] LABS: BACTERIA-REFLEX >30 Many /HPF (None Seen); CASTS None Seen /LPF (None Seen); CRYSTALS None Seen /LPF (None Seen); SQUAMOUS 0-3 Few /LPF (0-3); URINE RBC 0-2 Rare /HPF (0-2); URINE WBC-REFLEX 0-5 Rare /HPF (0-5)
[2019-10-20] MEDS ORDERED: PERCOCET 10-321 EAC1 PO (15:50)
[2019-10-20] MEDS ORDERED: VALACYCLOVIR1000 MG PO (15:50)
[2019-10-20 15:51] LABS: BE(vivo) -2.2 mmol/L (-2 to +3); HCO3 21.8 mmol/L (22.0-26.0); PO2 57.9 mmHg (80.0-100.0); pH 7.401 (7.360-7.450); sO2 90.3 % (92.0-98.0)
[2019-10-20] MEDS ORDERED: BENICAR40 MG PO (15:51)
[2019-10-20] MEDS ORDERED: TOPAMAX50 MG PO (15:51)
[2019-10-20] MEDS ORDERED: BENTYL 20 MG TA20 M1 PO (15:52)
[2019-10-20] MEDS ORDERED: ROSUVASTATIN CA20 MG PO (15:52)
[2019-10-20 16:16] LABS: APTT 26.1 Seconds (24.5-32.8); PROTIME 10.4 Seconds (9.3-11.4)
[2019-10-20] MEDS ORDERED: GLUCOSAMINE H1500 MG PO (16:40)
[2019-10-20] MEDS ORDERED: MULTIVITAMINS1 EAC7 PO (16:41)
[2019-10-20] MEDS ORDERED: VITAMIN E1000 UNIT PO (16:41)
[2019-10-20] MEDS ORDERED: FISH OIL 1,201200 MG PO (16:41)
[2019-10-20 17:40] VITALS: BP 143/95
--- NOTE | 2019-10-22 11:45 | EKG ---
[facility] [place] [address] ELECTROCARDIOGRAM REPORT Name: WALT CONTRERAS [facility] [id number] Admission: 10/20/19 Attend Phys: Discharge: 10/20/19 Date of : 44 Report #: [id number] THIS REPORT FOR: cc: Travis Adamson Steven F. DO Couchonnal, Luis F. 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 : 1940 Requested By: Ceasar Pascual Order Number: [id number] MD: Dmitri Lebron Measurements Intervals [place] Rate: 93 P: 49 ND: 213 QRS: -5 QRSD: 113 T: 40 QT: 381 QTc: 474 Interpretive Statements Sinus rhythm Borderline prolonged ND interval Probable left atrial enlargement Incomplete right bundle branch block Abnormal inferior Q waves Compared to ECG 10/21/2001 10:27:51 Electronically Signed On 10-22-2019 11:44:47 CDT by Dmitri Lebron [email or web address] <ELECTRONICALLY SIGNED> By: Dmitri Lebron MD 10/22/19 1144 1459 1459 Dmitri Lebron MD /EPI
== END 2019-10-20 17:38 | disposition short-term general hospital (02) ==
LOC: ER 14:47
PROVIDERS: Emergency Medicine
DX: I60.9 Nontraumatic subarachnoid hemorrhage, unspecified (principal); I10 Essential (primary) hypertension; F32.9 Major depressive disorder, single episode, unspecified; J44.9 Chronic obstructive pulmonary disease, unspecified; G43.909 Migraine, unspecified, not intractable, without status migrainosus; Z79.899 Other long term (current) drug therapy; Z88.0 Allergy status to penicillin; Z88.1 Allergy status to other antibiotic agents; Z98.51 Tubal ligation status; Z90.710 Acquired absence of both cervix and uterus; Z90.89 Acquired absence of other organs; Z96.653 Presence of artificial knee joint, bilateral